=== PATIENT | male | born 2000 | race Caucasian/White ===

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

== ENCOUNTER 2024-03-07 23:44 | Emergency (ER) | payer BC, OTHER ==
[~2024-03-07] VITALS: Ht 170.2 cm; Wt 59.1 kg
[2024-03-08] MEDS ORDERED: IBUP-1022 PO (01:47)
[2024-03-08 01:59] VITALS: BP 135/68; TEMP 97.6; O2SAT 98
== END 2024-03-08 02:01 | disposition home or self-care (01) ==
LOC: M ED 23:44
DX: S93.492A Sprain of other ligament of left ankle, initial encounter (principal); X50.0XXA Overexertion from strenuous movement or load, initial encounter; F17.200 Nicotine dependence, unspecified, uncomplicated; F10.10 Alcohol abuse, uncomplicated; Y92.9 Unspecified place or not applicable; Y93.89 Activity, other specified; Y99.9 Unspecified external cause status